=== PATIENT | female | born 1980 | race African-American/Black ===

== ENCOUNTER 2017-12-30 15:20 | Emergency (ER) | payer MEDICAID ==
[~2017-12-30] VITALS: Ht 157.5 cm; Wt 86.2 kg
[2017-12-30 15:38] VITALS: BP 135/92
[2017-12-30] MEDS ORDERED: PROMETHAZINE-D118 ML ORAL (16:11)
[2017-12-30] MEDS ORDERED: IBUPROFEN600 MG ORAL (16:11)
--- NOTE | 2017-12-30 19:38 | Emergency Room Report ---
History of Present Illness General Chief Complaint: General Complaint Source: Patient Present Illness HPI Patient's a 37-year-old female presenting for 3 weeks of cough. She denies any known sick contacts or recent travel. She had a flu shot this year. Cough is dry. She admits to 8/10 dull ache to the mid chest which occurs with coughing only. She has used Tylenol which helps for the pain. She denies any other symptoms including fever, chills, SOB, wheezing, hemoptysis, night sweats Allergies: Coded Allergies: No Known Allergies (Unverified , 12/30/17) Patient History Past Medical History: see triage record Pertinent Family History: none Last Menstrual Period: 12/10/17 Now: No Reviewed Nursing Documentation: PMH: Agreed, PSxH: Agreed Nursing Documentation-PMH Past Medical History: No Stated History Review of Systems All Other Systems: negative except mentioned in HPI Physical Exam Vital Signs Date Time Temp Pulse Resp B/P (MAP) Pulse Ox O2 Delivery O2 Flow Rate FiO2 12/30/17 15:35 98.6 79 18 135/92 100 Room Air 98.6 Sp02 EP Interpretation: reviewed, normal General Appearance: no apparent distress, alert, GCS 15, non-toxic Head: normocephalic, atraumatic Eyes: bilateral eye normal inspection, bilateral eye PERRL ENT: hearing grossly normal, normal pharynx, no angioedema, normal voice Neck: full range of motion, supple/symm/no masses Respiratory: chest non-tender, lungs clear, normal breath sounds, speaking full sentences Cardiovascular #1: regular rate, rhythm, no edema Gastrointestinal: normal bowel sounds, non tender, soft, non-distended, no guarding, no rebound Musculoskeletal: back normal, gait/station normal, normal range of motion, non- tender Neurologic: alert, oriented x3, responsive, motor strength/tone normal, sensory intact, speech normal Psychiatric: judgement/insight normal, memory normal, mood/affect normal, no suicidal/homicidal ideation Skin: normal color, no rash, warm/dry, well hydrated Lymphatic: no adenopathy Medical Decision Making PA Attestation Dr. Raymundo is my supervising physician. Patient management was discussed with my supervising physician Diagnostic Impression: Primary Impression: Viral URI ER Course Patient's a 37-year-old female presenting for 3 weeks of cough Differential diagnosis include but not limited to pharyngitis, sinusitis, AOM, bronchitis, PNA PE: No apparent distress. No TTP over maxillary or frontal sinuses. Lungs CTA bilat. No wheezing. No accessory muscle use. Heart: RRR, no abnormal heart sounds Ears: external auditory canal clear. Non erythematous. Bilat TM intact. Cone of light present bilat. No bulging of TM. No serous fluid seen. no nasal D/C no cervical lymphad No tonsillar exudate. Uvula midline.Oropharynx non erythematous Patient's discharged home with prescription for Motrin and cough medication. She will F/U with PMD Last Vital Signs Date Time Temp Pulse Resp B/P (MAP) Pulse Ox O2 Delivery O2 Flow Rate FiO2 12/30/17 16:29 98.6 79 20 128/77 100 Room Air 98.6 Status: improved Disposition: HOME, SELF-CARE Condition: Improved Scripts D-Methorphan Hb/Prometh Hcl* (PROMETHAZINE-DM SYRUP*) 118 Ml Syrup 5 ML ORAL Q6H Y for For Cough, #118 ML 0 Refills Prov: KRISTAL BOYD 12/30/17 Ibuprofen* (MOTRIN*) 600 Mg Tablet 600 MG ORAL Q8H Y for For Pain, #30 TAB 0 Refills Prov: KRISTAL BOYD 12/30/17 Referrals: [facility],REFERRING (PCP) Patient Instructions: Cough, Adult Additional Instructions: I discussed my findings with the patient. All questions and concerns have been answered. Treatment and medication compliance have been addressed. I advised the patient that they need to follow up with PMD in 3-5 days. Return to ED if pain remains or worsens, cough worsens or remains, you notice blood in your sputum, you notice wheezing, you experience a fever, or if needed for any reason. Patient verbalized understanding of discharge instructions. KRISTAL BOYD Dec 30, 2017 19:37
== END 2017-12-30 16:29 | disposition home or self-care (01) ==
LOC: EMR 16:10
DX: J06.9 Acute upper respiratory infection, unspecified (principal); B97.89 Other viral agents as the cause of diseases classified elsewhere
CPT/HCPCS: 99284

== ENCOUNTER 2018-07-06 14:34 | Emergency (ER) | payer MEDICAID ==
[~2018-07-06] VITALS: Ht 157.5 cm; Wt 81.6 kg
[~2018-07-06 14:34] MED LIST: IBUPROFEN600 MG ORAL; PROMETHAZINE-D118 ML ORAL
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
[2018-07-06 15:35] LABS: APPEARANCE,URINE CLEAR; BILIRUBIN, URINE NEGATIVE (NEGATIVE); COLOR,URINE PALE YELLOW; GLUCOSE, URINE (UA) NEGATIVE (NEGATIVE); KETONES,URINE NEGATIVE (NEGATIVE); LEUKOCYTE ESTERASE ,URINE 1+ (NEGATIVE); NITRITE,URINE NEGATIVE (NEGATIVE); PH,URINE 6 (4.5-8.0); PROTEIN,URINE NEGATIVE (NEGATIVE); UROBILINOGEN,URINE NORMAL MG/DL (0.0-1.0)
[2018-07-06] MEDS ORDERED: FLUCONAZOLE100 MG ORAL (16:07)
[2018-07-06] MEDS ORDERED: BACTRIM DS TAB1 EAC1 ORAL (16:07)
[2018-07-06] MEDS ORDERED: SILVADENE20 GM TP (16:07)
[2018-07-06 16:20] VITALS: BP 127/83
[2018-07-06 16:22] VITALS: BP 130/82
[2018-07-06 16:31] VITALS: BP_SYST 127; BP_SYST 130; BP_DIAS 82; BP_DIAS 83
[2018-07-06 16:36] VITALS: BP 124/77
== END 2018-07-06 16:58 | disposition home or self-care (01) ==
LOC: EMR 14:40
DX: T21.55XA Corrosion of first degree of buttock, initial encounter (principal); Y92.89 Other specified places as the place of occurrence of the external cause; N39.0 Urinary tract infection, site not specified; L24.89 Irritant contact dermatitis due to other agents
CPT/HCPCS: 81003; 81025; 87086; 87181; 99283

== ENCOUNTER 2019-12-13 11:23 | Emergency (ER) | payer MEDICAID ==
[~2019-12-13] VITALS: Ht 157.5 cm; Wt 77.1 kg
[~2019-12-13 11:23] MED LIST changes: +BACTRIM DS TAB1 EAC1 ORAL; +FLUCONAZOLE100 MG ORAL; +SILVADENE20 GM TP
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
[2019-12-13 11:52] VITALS: BP 121/70
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
[2019-12-13] MEDS ORDERED: ACETAMINOPHEN-1 EAC1 ORAL (12:47)
[2019-12-13] MEDS ORDERED: IBUPROFEN600 MG ORAL (12:47)
[2019-12-13] MEDS ORDERED: ROBAXIN-500MG ORAL (12:47)
--- NOTE | 2019-12-13 12:55 | NUR ---
ER DISCHARGE NOTE: Patient is cleared to be discharged per ERMD, pt is aox4, on room air, with stable vital signs. pt was given dc and prescription instructions, pt was able to verbalize understanding, pt id band removed. pt is able to ambulate with steady gait. pt took all belongings.
[2019-12-13 12:56] VITALS: BP 126/78
== END 2019-12-13 12:56 | disposition home or self-care (01) ==
LOC: EMR 12:25
DX: S46.911A Strain of unspecified muscle, fascia and tendon at shoulder and upper arm level, right arm, initial encounter (principal); V43.62XA Car passenger injured in collision with other type car in traffic accident, initial encounter; Y92.410 Unspecified street and highway as the place of occurrence of the external cause
CPT/HCPCS: 99282